=== PATIENT | female | born 1970 | race American Indian/Alaskan Native ===

== ENCOUNTER 2018-12-23 08:19 | Outpatient (CLI) | payer BC ==
--- NOTE | 2018-12-23 13:43 | Mammography Report ---
BILATERAL DIGITAL SCREENING MAMMOGRAM with CAD: 12/23/18 CLINICAL: Routine screening. COMPARISON:None available. However, a prior mammogram was apparently done at [facility]. FINDINGS: The breasts are heterogeneously dense, which may obscure small masses. Right asymmetries on both views require comparison with a prior mammogram or additional imaging.No architectural distortion or suspicious calcifications.The left breast is negative. IMPRESSION: Right asymmetries requiring further evaluation. BI-RADS CATEGORY: 0 -- Additional Evaluation Required RECOMMENDATION: Comparison with a previous mammogram. We will attempt to obtain a prior mammogram for comparison. If we do not obtain a prior mammogram within 30 days, a revised report will be issued recommending a recall for additional imaging. Please be advised that the patient should not schedule an appointment for return until adequate time (at least 2 weeks) has passed for us to obtain the prior mammogram. COMMENT: 1. Dense breast tissue, i.e., adenosis, fibrocystic changes, etc., may obscure an underlying neoplasm. 2. Approximately 10% of cancers are not detected with mammography. 3. A negative mammography report should not delay biopsy if a clinically suspicious mass is present. COMMENT: Patient follow-up letters are generated via our [employer] application.
== END 2018-12-23 08:20 | disposition home or self-care (01) ==
LOC: MAMMO 08:19
PROVIDERS: ATTEND Internal Medicine
DX: Z12.31 Encounter for screening mammogram for malignant neoplasm of breast (principal)
CPT/HCPCS: 77067

== ENCOUNTER 2019-01-13 10:48 | Outpatient (CLI) | payer BC ==
--- NOTE | 2019-01-13 11:27 | Mammography Report ---
RIGHT DIGITAL DIAGNOSTIC MAMMOGRAM : 01/13/19 10:48:00 CLINICAL: Recalled for asymmetries. COMPARISON:01/13/19 screening FINDINGS: Additional mammographic views were performed and are negative. IMPRESSION: Negative Mammogram. BI-RADS CATEGORY: 1 -- Negative RECOMMENDATION: Routine mammographic screening in one year. COMMENT: 1. Dense breast tissue, i.e., adenosis, fibrocystic changes, etc., may obscure an underlying neoplasm. 2. Approximately 10% of cancers are not detected with mammography. 3. A negative mammography report should not delay biopsy if a clinically suspicious mass is present. COMMENT: Patient follow-up letters are generated via our [employer] application.
== END 2019-01-13 10:49 | disposition home or self-care (01) ==
LOC: MAMMO 10:48
PROVIDERS: ATTEND Internal Medicine
DX: R92.8 Other abnormal and inconclusive findings on diagnostic imaging of breast (principal)
CPT/HCPCS: 77066

== ENCOUNTER 2019-07-27 07:16 | Emergency (ER) | payer BC ==
--- NOTE | 2019-07-27 08:19 | XRay Report ---
CHEST 1 VIEW INDICATION / CLINICAL INFORMATION: Chest Pain. COMPARISON: None available. FINDINGS: SUPPORT DEVICES: There is a right neck central venous line. The tip of the line projects over the mid aspect of the mediastinum. The patient is rotated which may account for this. Because of this positi oning location I cannot determine the exact intravascular location of the catheter. HEART / MEDIASTINUM: No significant abnormality. LUNGS / PLEURA: There is mild patchy airspace opacity in the right upper lung zone. No pneumothorax. ADDITIONAL FINDINGS: There is mild elevation of the right hemidiaphragm IMPRESSION: 1. There is mild patchy airspace opacity in the right upper lung zone. No pneumothorax is seen. 2. There is a right neck central venous line. The tip projects over the mid aspect of the mediastinum to the patient is rotated. Based on this exam, I cannot determine the exact intravascular location o f the catheter tip. Clinical maneuvers are recommended to ensure that this is in an intravenous locat ion. 3. There is mild elevation of the right hemidiaphragm Signer Name: Shalom Valentin MD Signed: 07/27/2019 8:15 AM Workstation Name: [id number]
--- NOTE | 2019-07-27 08:25 | Emergency Department Report ---
ED Chest Pain HPI - General Chief Complaint: Chest Pain Stated Complaint: CHEST/RT SIDE PAIN Source: patient Mode of arrival: Ambulatory Limitations: No Limitations - History of Present Illness Initial Comments: Right side chest pain worsens with inspiration . MD Complaint: chest pain -: Sudden, This morning Onset: awoke with symptoms Pain Location: right chest Pain Radiation: none Severity scale (0 -10): 4 Quality: sharp Consistency: intermittent Improves With: nothing Worsens With: inspiration, movement re: denies: nausea, vomting, diaphoresis, dyspnea, sense of impending doom Other Symptoms: denies: cough, fever, syncope, rash, leg swelling, palpitations Treatments Prior to Arrival: none - Related Data On Oral Contraceptives: No Home Medications Medication Instructions Recorded Confirmed Last Taken Amlodipine Besylate/Benazepril 1 mg PO QDAY 07/27/19 07/27/19 Unknown [Amlodipine-Benazepril 5-20 mg] AtorvaSTATin [Lipitor] 20 mg PO QHS 07/27/19 07/27/19 Unknown Sitagliptin Phosphate [Januvia] 100 mg PO QDAY 07/27/19 07/27/19 Unknown buPROPion SR [Wellbutrin SR] 150 mg PO QDAY 07/27/19 07/27/19 Unknown metFORMIN [Glucophage] 850 mg PO BID 07/27/19 07/27/19 Unknown Previous Rx's Medication Instructions Recorded Last Taken Type traMADoL [Ultram] 50 mg PO Q6HR PRN #20 tablet 07/27/19 Unknown Rx Allergies Allergy/AdvReac Type Severity Reaction Status Date / Time aspirin Allergy Rash Verified 07/27/19 07:20 Heart Score - HEART Score History: Slightly suspicious EKG: Normal Age: 45-65 Risk factors: 1-2 risk factors Troponin: 1-3x normal limit HEART Score: 3 - Critical Actions Critical Actions: 0-3 pts:0.9-1.7%risk of adverse cardiac event.Candidate for discharge ED Review of Systems ROS: Stated complaint: CHEST/RT SIDE PAIN Other details as noted in HPI Comment: All other systems reviewed and negative Cardiovascular: chest pain Gastrointestinal: denies: abdominal pain, nausea, vomiting ED Past Medical Hx - Past Medical History Hx Hypertension: Yes Hx Diabetes: Yes Additional medical history: HIGH CHOLESTEROL - Surgical History Additional Surgical History: BRAIN ANUERSYMS - Social History Smoking Status: Current Every Day Smoker Substance Use Type: None - Medications Home Medications: Home Medications Medication Instructions Recorded Confirmed Last Taken Type Amlodipine Besylate/Benazepril 1 mg PO QDAY 07/27/19 07/27/19 Unknown History [Amlodipine-Benazepril 5-20 mg] AtorvaSTATin [Lipitor] 20 mg PO QHS 07/27/19 07/27/19 Unknown History Sitagliptin Phosphate [Januvia] 100 mg PO QDAY 07/27/19 07/27/19 Unknown History buPROPion SR [Wellbutrin SR] 150 mg PO QDAY 07/27/19 07/27/19 Unknown History metFORMIN [Glucophage] 850 mg PO BID 07/27/19 07/27/19 Unknown History traMADoL [Ultram] 50 mg PO Q6HR PRN #20 tablet 07/27/19 Unknown Rx ED Physical Exam - General Limitations: No Limitations General appearance: alert, in no apparent distress - Head Head exam: Present: atraumatic - Eye Eye exam: Present: normal appearance - ENT ENT exam: Present: mucous membranes moist - Neck Neck exam: Present: normal inspection - Respiratory Respiratory exam: Present: normal lung sounds bilaterally - Cardiovascular Cardiovascular Exam: Present: regular rate, normal heart sounds - GI/Abdominal GI/Abdominal exam: Present: soft, normal bowel sounds. Absent: distended, tenderness - Rectal Rectal exam: Present: deferred - Extremities Exam Extremities exam: Present: full ROM. Absent: pedal edema - Back Exam Back exam: Present: normal inspection - Neurological Exam Neurological exam: Present: alert, oriented X3 - Psychiatric Psychiatric exam: Present: normal affect - Skin Skin exam: Present: warm, dry, intact. Absent: rash ED Course Vital Signs 07/27/19 07/27/19 07/27/19 05:56 06:00 07:23 Temperature 98.6 F Pulse Rate 58 L 56 L 89 Respiratory 15 13 17 Rate Blood Pressure 125/71 128/71 O2 Sat by Pulse 98 96 Oximetry 07/27/19 07/27/19 07/27/19 07:46 07:52 08:00 Temperature Pulse Rate 89 97 H 96 H Respiratory 17 10 L 15 Rate Blood Pressure 113/65 112/69 O2 Sat by Pulse 96 97 Oximetry 07/27/19 07/27/19 07/27/19 08:31 09:31 10:00 Temperature Pulse Rate 91 H 92 H Respiratory 13 24 18 Rate Blood Pressure 113/65 112/69 105/66 O2 Sat by Pulse 99 96 96 Oximetry 07/27/19 07/27/19 07/27/19 11:31 14:01 14:22 Temperature 98.6 F Pulse Rate 94 H 95 H 95 H Respiratory 21 17 17 Rate Blood Pressure 105/66 105/66 O2 Sat by Pulse 98 97 97 Oximetry - Reevaluation(s) Reevaluation #1: 07/27/19 11:08 patient d-dimer is 436 patient notified. CTA of the chest ordered to rule out pulmonary embolism. Patient complains of intermittent right sided chest pain that worsens with inspiration she refuses any pain medication at this time vital signs are normal. Patient in no apparent distress JASON score - Jason Score Age > 65: (0) No Aspirin use within the Past 7 Days: (0) No 3 or more CAD Risk Factors: (1) Yes 2 or more Angina events in past 24 hrs: (0) No Known CAD with more than 50% Stenosis: (0) No Elevated Cardiac Markers: (0) No ST Deviation Greater than 0.5mm: (0) No JASON Score: 1 ED Medical Decision Making - Lab Data Result diagrams: 07/27/19 08:31 07/27/19 08:31 - EKG Data EKG shows normal: sinus rhythm Rate: normal - EKG Data When compared to previous EKG there are: previous EKG unavailable - Radiology Data Radiology results: report reviewed CT Angio Chest IMPRESSION: No evidence for pulmonary embolus. Trace right pleural effusion of uncertain etiology. Pleurisy Hepatic steatosis. - Medical Decision Making This is a 49-year-old female presents to the emergency room with complaint of right sided chest pain started yesterday the pain is worsened with deep breath and change in position. Patient denied cough,nausea vomiting abdominal pain fever and chills. She has a past medical history hypertension and type 2 diabetes. D-dimer was elevated at 436. CT Angio of chest ordered no pulmonary embolism she does have trace right pleurisy. Discussed results with the patient. Dr Dumas and I reviewed results he agrees with the plan of care patient to be discharged home and follow up with her primary care doctor Patient will be discharged with Ultram for pain she is allergic to aspirin. Critical Care Time: No Critical care attestation.: If time is entered above; I have spent that time in minutes in the direct care of this critically ill patient, excluding procedure time. ED Disposition Clinical Impression: Pleurisy Disposition: DC-01 TO HOME OR SELFCARE Is pt being admited?: No Does the pt Need Aspirin: No Condition: Stable Instructions: Chest Pain (ED), Pleurisy (ED) Additional Instructions: Follow up with your primary care doctor in 2-3 days. Your magnesium level today was 1.6 which is slightly decreased please take magnesium oxide [id number] as directed for 2 week. Have your doctor recheck your magnesium level within 2-4 weeks. The CAT scan of chest shows no pulmonary embolism does so Pleurisy. Please return to the emergency room for any worsening chest pain or shortness of breath or fever, abdominal pain Prescriptions: traMADoL [Ultram] 50 mg PO Q6HR PRN #20 tablet PRN Reason: Pain Referrals: DARIAN KOLB MD [Primary Care Provider] - 3-5 Days Forms: Work/School Release Form(ED) Time of Disposition: 14:00
[2019-07-27 08:55] LABS: Basophils # (Auto) 0.1 K/mm3 (0.0-0.1); Basophils % (Auto) 0.9 % (0.0-1.8); Eosinophils # (Auto) 0.1 K/mm3 (0.0-0.4); Eosinophils % (Auto) 1.3 % (0.0-4.3); Hematocrit 35.3 % (30.3-42.9); Hemoglobin 11.9 gm/dl (10.1-14.3); Lymphocytes # (Auto) 1.9 K/mm3 (1.2-5.4); Lymphocytes % (Auto) 21.4 % (13.4-35.0); Mean Corpuscular HGB Conc 34 % (30-34); Mean Corpuscular Volume 84 fl (79-97); Monocytes # (Auto) 0.4 K/mm3 (0.0-0.8); Platelet Count 280 K/mm3 (140-440); Red Blood Count 4.21 M/mm3 (3.65-5.03)
[2019-07-27 09:31] LABS: Creatine Kinase MB < 1.0 ng/mL (0.0-4.0)
[2019-07-27 09:33] LABS: Alanine Aminotransferase 19 units/L (7-56); Albumin 4.4 g/dL (3.9-5); BUN/Creatinine Ratio 17; Blood Urea Nitrogen 10 mg/dL (7-17); Calcium 9.7 mg/dL (8.4-10.2); Hemolysis Index 0
[2019-07-27 09:40] LABS: Bilirubin,Direct < 0.2 mg/dL (0-0.2)
[2019-07-27 09:57] LABS: INR 0.97 (0.87-1.13)
[2019-07-27 10:16] LABS: Partial Thromboplastin Time 29.6 Sec. (24.2-36.6)
[2019-07-27 10:29] VITALS: BP 105/66
--- NOTE | 2019-07-27 13:30 | Cat Scan Report ---
CTA CHEST WITH CONTRAST INDICATION : Right sided chest pain elevated D-dimer. TECHNIQUE: Axial imaging performed through the chest, with contrast bolus timing set to maximize opa cification of the pulmonary arteries. Sagittal and coronal reformatted images. 3-plane MIP reformatte d images were obtained. All CT scans at this location are performed using CT dose reduction for ALAR A by means of automated exposure control. 100 mL of intravenous contrast administered. COMPARISON: FINDINGS: Bolus: Contrast bolus timing is adequate. PTE: No filling defect is present to suggest PTE. Mediastinum: Heart and great vessels appear normal. No pathologic mediastinal adenopathy. Lungs: Minor atelectatic changes are noted at the right lung base. No evidence for pneumonia, nodule or parenchymal disease. Trace right pleural fluid is identified which is of uncertain etiology. Bones: Degenerative changes in the spine with nothing acute. Upper abdomen: Moderate diffuse fatty infiltration throughout the liver parenchyma is evident. IMPRESSION: No evidence for pulmonary embolus. Trace right pleural effusion of uncertain etiology. Pleurisy Hepatic steatosis. Signer Name: José Miguel Alvarado Jr, MD Signed: 07/27/2019 1:26 PM Workstation Name: [id number]
[2019-07-27] MEDS ORDERED: traMADol 50 MG TAB PO ONE (13:53)
== END 2019-07-27 14:23 | disposition home or self-care (01) ==
LOC: ED 07:16
DX: R09.1 Pleurisy (principal); I10 Essential (primary) hypertension; E11.9 Type 2 diabetes mellitus without complications; E78.00 Pure hypercholesterolemia, unspecified; F17.200 Nicotine dependence, unspecified, uncomplicated; Z79.899 Other long term (current) drug therapy; Z79.84 Long term (current) use of oral hypoglycemic drugs; Z88.6 Allergy status to analgesic agent
CPT/HCPCS: 36415; 71045; 71275; 80048; 80076; 82550; 82553; 83735; 83880; 84484; 85025; 85379; 85610; 85730; 93005; 93010; 99285; Q9967

== ENCOUNTER 2020-01-31 00:01 | Emergency (ER) | payer BC ==
[2020-01-31 00:20] VITALS: BP 122/68
--- NOTE | 2020-01-31 01:20 | XRay Report ---
Right wrist 4 views INDICATION: Right wrist pain following injury IMPRESSION: Swelling along the dorsal wrist appreciated. No underlying fracture or subluxation is bonita reciated. Signer Name: Segundo Martinez MD Signed: 01/31/2020 1:15 AM Workstation Name: [id number]
--- NOTE | 2020-01-31 02:38 | Emergency Department Report ---
ED General Adult HPI - General Chief complaint: Extremity Injury, Upper Stated complaint: RIGHT HAND PAIN Time Seen by Provider: 01/31/20 02:00 Source: patient Mode of arrival: Ambulatory Limitations: No Limitations - History of Present Illness Initial comments: 49-year-old -[place] female patient presents with complaints of right wrist pain and swelling x tonight. Patient states as she was packing, she swung a heavy suitcase across the room and got sudden pain in her right wrist. She does report history of carpal tunnel in the right wrist. She denies trying any medication for her pain. She rates her current pain as a 6/10 in severity and states it worsens with touch in movement of the wrist. She denies any loss of sensation or decreased range of motion of the wrist, hand, or fingers. Patient also denies any history of gout - Related Data Home Medications Medication Instructions Recorded Confirmed Last Taken Amlodipine Besylate/Benazepril 1 mg PO QDAY 07/27/19 07/27/19 Unknown [Amlodipine-Benazepril 5-20 mg] AtorvaSTATin [Lipitor] 20 mg PO QHS 07/27/19 07/27/19 Unknown Sitagliptin Phosphate [Januvia] 100 mg PO QDAY 07/27/19 07/27/19 Unknown buPROPion SR [Wellbutrin SR] 150 mg PO QDAY 07/27/19 07/27/19 Unknown metFORMIN [Glucophage] 850 mg PO BID 07/27/19 07/27/19 Unknown Previous Rx's Medication Instructions Recorded Last Taken Type traMADoL [Ultram] 50 mg PO Q6HR PRN #20 tablet 07/27/19 Unknown Rx Ibuprofen [Motrin 600 MG tab] 1 tab PO TID PRN #15 tab 01/31/20 Unknown Rx Allergies Allergy/AdvReac Type Severity Reaction Status Date / Time aspirin Allergy Rash Verified 07/27/19 07:20 ED Review of Systems ROS: Stated complaint: RIGHT HAND PAIN Other details as noted in HPI Constitutional: denies: fever Musculoskeletal: joint swelling, arthralgia Skin: denies: rash, lesions, change in color Neurological: denies: weakness, numbness, paresthesias Hematological/Lymphatic: denies: easy bleeding, easy bruising ED Past Medical Hx - Past Medical History Previous Medical History?: Yes Hx Hypertension: Yes Hx Diabetes: Yes Additional medical history: HIGH CHOLESTEROL, Carpal Tunnel - Surgical History Past Surgical History?: Yes Additional Surgical History: BRAIN ANUERSYMS - Social History Smoking Status: Current Every Day Smoker Substance Use Type: None - Medications Home Medications: Home Medications Medication Instructions Recorded Confirmed Last Taken Type Amlodipine Besylate/Benazepril 1 mg PO QDAY 07/27/19 07/27/19 Unknown History [Amlodipine-Benazepril 5-20 mg] AtorvaSTATin [Lipitor] 20 mg PO QHS 07/27/19 07/27/19 Unknown History Sitagliptin Phosphate [Januvia] 100 mg PO QDAY 07/27/19 07/27/19 Unknown History buPROPion SR [Wellbutrin SR] 150 mg PO QDAY 07/27/19 07/27/19 Unknown History metFORMIN [Glucophage] 850 mg PO BID 07/27/19 07/27/19 Unknown History traMADoL [Ultram] 50 mg PO Q6HR PRN #20 tablet 07/27/19 Unknown Rx Ibuprofen [Motrin 600 MG tab] 1 tab PO TID PRN #15 tab 01/31/20 Unknown Rx ED Physical Exam - General Limitations: No Limitations General appearance: alert, in no apparent distress - Head Head exam: Present: atraumatic, normocephalic - Eye Eye exam: Absent: scleral icterus - Respiratory Respiratory exam: Absent: respiratory distress - Cardiovascular Cardiovascular Exam: Present: regular rate - Expanded Upper Extremity Exam Right Hand Wrist exam: Present: tenderness (Noted over ulnar head without swelling), swelling (Mild to moderate swelling noted at the lower medial aspect of the right wrist, no warmth or erythema noted) Neuro motor exam: Present: wrist extension intact, thumb opposition intact, aida mb IP flexion intact, thumb adduction intact, fingers 2-5 abduction intact, other Vascular: Present: normal capillary refill, radial pulse. Absent: vascular compromise ED Course Vital Signs 01/31/20 01/31/20 00:11 02:43 Temperature 99.1 F 98.3 F Pulse Rate 105 H 94 H Respiratory 18 18 Rate Blood Pressure 122/68 O2 Sat by Pulse 94 100 Oximetry ED Medical Decision Making - Radiology Data Radiology results: report reviewed Right wrist 4 views INDICATION: Right wrist pain following injury IMPRESSION: Swelling along the dorsal wrist appreciated. No underlying fracture or subluxation is appreciated. - Medical Decision Making Patient here with complaints of right wrist injury, pain, and swelling today. X-ray is negative for any acute bony abnormalities. There is some swelling of the wrist on exam, however patient does have normal sensation, perfusion, and range of motion of her hand, wrist, and fingers. Patient's pain improved with ibuprofen and [place]. Patient was placed in a Velcro wrist splint. Recommend rice method and follow-up with orthopedics as needed. Strict return precautions were discussed in detail with patient who verbalizes understanding. Critical care attestation.: If time is entered above; I have spent that time in minutes in the direct care of this critically ill patient, excluding procedure time. ED Disposition Clinical Impression: Right wrist sprain Qualifiers: Encounter type: initial encounter Qualified Code(s): S63.501A - Unspecified sprain of right wrist, initial encounter Disposition: TO HOME OR SELFCARE Is pt being admited?: No Condition: Stable Instructions: Wrist Sprain (ED) Prescriptions: Ibuprofen [Motrin 600 MG tab] 1 tab PO TID PRN #15 tab PRN Reason: pain Referrals: ALIS ARREDONDO MD [Staff Physician] - as needed
[2020-01-31] MEDS ORDERED: IBUPROFEN 800 MG TAB PO ONE (02:39)
[2020-01-31] MEDS ORDERED: HYDROcodone/ACETAMINOPHEN 5-325 MG TAB PO ONE (02:39)
== END 2020-01-31 03:27 | disposition home or self-care (01) ==
LOC: ED 00:01
DX: S63.501A Unspecified sprain of right wrist, initial encounter (principal); I10 Essential (primary) hypertension; E11.9 Type 2 diabetes mellitus without complications; F17.200 Nicotine dependence, unspecified, uncomplicated; Z98.890 Other specified postprocedural states; Z79.1 Long term (current) use of non-steroidal anti-inflammatories (NSAID); Z79.899 Other long term (current) drug therapy; Z88.8 Allergy status to other drugs, medicaments and biological substances; X58.XXXA Exposure to other specified factors, initial encounter; Y93.89 Activity, other specified; Y92.89 Other specified places as the place of occurrence of the external cause; Y99.8 Other external cause status